=== PATIENT | female | born 1990 | race Caucasian/White ===

== ENCOUNTER 2016-08-12 22:32 | Emergency (ER) | payer OTHER ==
[~2016-08-12] VITALS: Ht 162.6 cm; Wt 50.0 kg
[~2016-08-12 22:32] MED LIST: ASCO500T8 PO; Docusate Sodium PO; FERR-83 PO; HYDR-4003 PO; IBUP800T28 PO
[2016-08-12 22:35] VITALS: BP 103/70; PULSE 92; RESP 18; O2SAT 98
--- NOTE | 2016-08-12 23:01 | ED.REPORT ---
HPI-Headache Date of Service Aug 12, 2016 ED Provider: Dr. Quinn Andrea M.D. A 26 year old female with a medical history including migraines presents to the ED with a migraine headache onset five days ago. Associated symptoms include nausea, vomiting, blurred vision, subjective hypotension, fever (37.6 in ED), and fatigue. The patient denies numbness, weakness, additional vision changes, or other symptoms. She was seen at Urgent Care today for a sinus infection and an ear infection, but has not yet taken her prescribed antibiotics. The patient did take Ibuprofen at home today, but vomited immediately afterwards. She has had similar symptoms in the past. Nursing Notes Stated Complaint: VOMITING/MIGRAINE Chief Complaint: Headache Nursing Notes Reviewed: Yes Allergies: Coded Allergies: Contrast Media (Verified Allergy, Severe, 05/19/15) Uncoded Allergies: CT CONSTRAST (Allergy, Unknown, 05/19/15) Scheduled Ascorbic Acid (Vitamin C) 500 Mg Tablet 250 MG PO DAILY Ferrous Sulfate (Ferrous Sulfate) 325 Mg Tablet 325 MG PO DAILY Scheduled PRN ([Docusate Sodium]) 100 MG CAPSULE 100 MG PO DAILY PRN PRN For Constipation Hydrocodone-Acetaminophen 5-325 mg (Hydrocodone-Acetaminophen 5-325 mg) 1 Tab Tablet 1 TAB PO Q4-6H PRN PRN For Pain Ibuprofen (Ibuprofen) 800 Mg Tablet 600 MG PO Q6-8H PRN PRN For Pain Prochlorperazine Maleate (Prochlorperazine) 10 Mg Tablet 10 MG PO Q8 PRN PRN For Nausea/Vomiting General Time Seen by MD: 23:00 Chief Complaint Migraine headache Hx Obtained From: Patient Arrived By: Walk-in Sudden in Onset?: No Onset Occurred: 5 days ago Symptom Duration: Since onset Location: : Generalized Quality: Painful Severity: Current: Moderate Severity: Maximum: Moderate Associated with: Reports: Fever, Nausea, Visual disturbance, Vomiting, Denies: Numbness, Weakness Pertinent Negative: Relieved by nothing Related History: Reports: Headache, migraine hx Recent Healthcare: Recent doctor visit Similar Sx Previous: Yes Past Medical History Past Medical History Chronic low back pain Migraines Hypotensive and bradycardic episode 2011 Past Surgical History I&D Smoking History Heavy Tobacco Smoker Social History Other Social History: Lives with children Ambulatory Status Independent Review of Systems Review of Systems Note: + Subjective hypotension Constitutional: Reports: Fatigue, Fever (37.6 in ED) GI: Reports: Nausea, Vomiting Neurologic: Reports: Headache (Migraine), Vision change (Blurred, no other changes), Denies: Numbness, Weakness Complete sys rev & neg: except as marked. Respiratory: Denies: Non-productive cough, Shortness of breath Physical Exam Physical Exam Notes: Initial Vital Signs Vital Signs (First) Date Time Temp Pulse Resp B/P Pulse Ox O2 Delivery O2 Flow Rate FiO2 08/12/16 22:35 37.6 92 18 103/70 98 Room Air Initial VS: Reviewed Respiratory: Breath sounds normal, Clear to auscultation, No respiratory distress Cardiovascular: Regular rate & rhythm, Heart sounds normal Abdomen / GI: Soft, Non-tender Skin: Warm, Dry, No cyanosis Psychiatric: Mood/affect normal, Behavior normal, Normal thought content General/Constitutional: Awake, Alert, No acute distress Head / Eyes: Atraumatic, Normocephalic, PERRL, EOMI Neck: Supple, Full range of motion Neurologic: Oriented X3, Speech NL, No motor deficits, No sensory deficits, CN II - XII intact ENT: Airway patent, Mucous membranes moist Interpretation & Diagnostics Lab Results Interpretation Test 08/12/16 23:40 Hold Purple Top Tube Received (Received) Hold Blue Top Tube Received (Received) Hold [place] Top Tube Received (Received) Hold [place]iel Top Tube Received (Received) Re-Eval/Medical Decision Med Decision/Clinical Course 18-year-old female with migraine and apparent trigger of sinusitis or otitis. She is improved here after standard migraine cocktail. No neurologic findings to suggest alternative or more worrisome etiology. This appears to be one of her stereotypical migraines, with a trigger. Discharged home in stable condition. Source of Hx: Old records Re-Evaluation/Progress : Time of Eval: 00:04 )( Patient Status: Condition improved Re-Evaluation/Progress Note: Patient is feeling better and wants to go home. Discussed with patient diagnosis and plan for discharge. Follow-up and return to the ER instructions given. Patient agrees with plan for care and all questions were addressed. Counseled Regarding: Diagnosis, Lab results, Need for follow-up, When/why to return to ED Discharge & Departure Shift Change Sign-Out Response to Therapy: Improved Impression: Primary Impression: Migraine Migraine type: unspecified Status migrainosus presence: with status migrainosus Intractability: not intractable Qualified Code: G43.901 - Migraine, unspecified, not intractable, with status migrainosus Additional Impression: Sinusitis Sinusitis location: unspecified location Chronicity: acute Recurrence: not specified as recurrent Qualified Code: J01.90 - Acute sinusitis, unspecified Disposition: Home Discharge Condition All VS Reviewed: Yes Condition: Improved Patient Instructions: Migraine Headache (ED), Sinusitis (ED) Additional Instructions: Drink plenty of fluids and stay well-hydrated. Compazine if needed for nausea and headache. Follow-up with your doctor in the office. Referrals: Dana Alvarado (PCP) Scribe Attestation Portions of this note were transcribed by Jocelyne Alamo. I, Dr. Andrea, personally performed the history, physical exam, and medical decision-making; I reviewed and confirmed the accuracy of the information in the transcribed note. Signed by: Sixto Ochoa, 08/13/2016, 00:55 copies to: Dana Alvarado Christopher W MD Aug 12, 2016 23:01 JOCELYNE ALAMO Aug 12, 2016 23:09
[2016-08-12] MEDS ORDERED: 0.9% Sodium Chloride 1,000 ML IV ONE (23:07)
[2016-08-12] MEDS ORDERED: Ondansetron 2 mg/mL 2 mL Inj IVPUSH ONE (23:10)
[2016-08-12] MEDS ORDERED: Dexamethasone 10 mg/mL Inj IVPUSH ONE (23:10)
[2016-08-12] MEDS ORDERED: Haloperidol 5 mg/mL Inj IVPUSH ONE (23:10)
[2016-08-13] MEDS ORDERED: PROC10TA PO (00:07)
[2016-08-13 00:22] VITALS: BP 100/53; PULSE 81; RESP 16; O2SAT 97
== END 2016-08-13 00:22 | disposition home or self-care (01) ==
LOC: SED 22:32
DX: G43.901 Migraine, unspecified, not intractable, with status migrainosus (principal); J01.90 Acute sinusitis, unspecified; F17.200 Nicotine dependence, unspecified, uncomplicated; Z91.041 Radiographic dye allergy status
CPT/HCPCS: 96361; 96374; 96375; 99284; J1100; J1200; J1630; J1885; J2405; J7030